=== PATIENT | female | born 1945 | race Caucasian/White ===

== ENCOUNTER 2016-07-27 09:11 | Outpatient (CLI) | payer MEDICARE | END 2016-07-27 09:12 | disposition home or self-care (01) | DX: I10 Essential (primary) hypertension (principal); E78.5 Hyperlipidemia, unspecified; E55.9 Vitamin D deficiency, unspecified ==

== ENCOUNTER 2017-07-11 14:40 | Outpatient (CLI) | payer MEDICARE ==
--- NOTE | 2017-07-12 12:46 | XRAY Report ---
COMPLETE LUMBAR SPINE: 07/11/2017 CLINICAL INDICATION: Back pain, radiculopathy. COMPARISON: 04/22/2009. FINDINGS: AP, lateral, oblique, cone down views of the lumbar spine demonstrate moderate degenerative disk and facet disease. There is degenerative retrolisthesis of L1 on L2 by approximately 5 mm, and degenerative anterolisthesis of L4 on L5 by approximately 1 cm. There is no evidence of compression fracture. No pars defect is identified. IMPRESSION: PROGRESSION OF DEGENERATIVE DISK AND FACET DISEASE, WITH DEGENERATIVE RETROLISTHESIS OF L1 ON L2 AND DEGENERATIVE ANTEROLISTHESIS OF L4 ON L5. NO EVIDENCE OF FRACTURE. TD: 07/12/2017 12:45
== END 2017-07-11 14:41 | disposition home or self-care (01) ==
LOC: DI.S 14:40
PROVIDERS: ATTEND Physician Assistant Medical
DX: M51.36 Other intervertebral disc degeneration, lumbar region (principal); M47.896 Other spondylosis, lumbar region; M43.16 Spondylolisthesis, lumbar region
CPT/HCPCS: 72110

== ENCOUNTER 2017-12-11 13:14 | Outpatient (CLI) | payer MEDICARE ==
[~2017-12-11 13:14] MED LIST: ALBUTEROL NEB 2.5 MG/3 ML INH ONE
== END 2017-12-11 13:15 | disposition home or self-care (01) ==
LOC: RT 13:14
PROVIDERS: ATTEND Physician Assistant Medical
DX: R06.09 Other forms of dyspnea (principal); R07.9 Chest pain, unspecified
CPT/HCPCS: 94010

== ENCOUNTER 2018-01-04 09:55 | Outpatient (CLI) | payer MEDICARE ==
--- NOTE | 2018-01-05 01:22 | CARDIAC PROCEDURE NOTE ---
DATE OF SERVICE: 01/04/2018 Physician: Flavia Malik MD INDICATION: Shortness of breath TYPE OF TEST: Stress Echo. CARDIAC RISK FACTORS: Hypertension and age of 72. RESTING EKG: Normal sinus rhythm, left atrial and right atrial enlargement, otherwise within normal limits. The patient underwent resting Echo images which are reported separately. Resting heart rate 69, peak heart rate 132 (90% predicted maximum predicted heart rate for age). Resting blood pressure 126/76, peak blood pressure 180/70. The patient exercised for 6 minutes, 43 seconds on a 3-minute stage Parker protocol. Achieved a peak heart rate of 132 (90% PMHR), 8.15 METS. Normal heart rate and blood pressure response to exercise. The patient developed moderate shortness of breath, no chest pain. The patient had normalization of symptoms, heart rate, and vital signs in recovery. EKG AT [facility]: horizontal ST segment depressions of 2.5 mm in leads II and III, 2 mm depressions in lead aVF. This was seen at peak heart rate. EKG changes resolved after 2 minutes. Echo images done at peak heart rate, are reported separately. IMPRESSION 1. Adequate exercise with heart rate response to 90% PMHR and she achieved greater than 7 METS. 2. Fair exercise tolerance. 3. Abnormal EKG at peak exercise, showing inferior wall ischemia by EKG criteria. 4. Echo images reported separately. CC: ORDERING PROVIDER: Martina Cruz PA-C. TD: 01/04/2018 17:06 SAMANTHA
== END 2018-01-04 09:56 | disposition home or self-care (01) ==
LOC: DI 09:55
PROVIDERS: ATTEND Physician Assistant Medical
DX: I25.9 Chronic ischemic heart disease, unspecified (principal); I51.7 Cardiomegaly; R06.09 Other forms of dyspnea
CPT/HCPCS: 93351

== ENCOUNTER 2018-07-14 10:24 | Outpatient (CLI) | payer MEDICARE ==
--- NOTE | 2018-07-15 00:53 | XRAY Report ---
Reason: KNEE JOINT PAIN, LEFT Procedure Date: 07/14/2018 Accession Number: [id number] / [id number] Procedure: XR - Knee 3 View LT CPT Code: FULL RESULT: EXAM: LEFT KNEE RADIOGRAPHY EXAM DATE: 07/14/2018 10:46 AM. CLINICAL HISTORY: KNEE JOINT PAIN, LEFT. Pain gradually increasing over time. COMPARISON: None. TECHNIQUE: 3 views. FINDINGS: No acute fracture or dislocation. No bone lesion is seen. No subluxation or knee joint effusion. Small suprapatellar enthesopathy. Heterogeneous chronic appearing calcification measuring 1.9 x 1.4 cm seen at the medial posterior aspect of the distal femur. IMPRESSION: Heterogeneous chronic appearing calcification measuring 1.9 x 1.4 cm seen at the medial posterior aspect of the distal femur, uncertain etiology. Loose body in the knee joint not excluded. [facility]
== END 2018-07-14 10:25 | disposition home or self-care (01) ==
LOC: DI 10:24
PROVIDERS: ATTEND Physician Assistant Medical
DX: M25.862 Other specified joint disorders, left knee (principal); M23.42 Loose body in knee, left knee

== ENCOUNTER 2018-07-20 08:16 | Outpatient (CLI) | payer MEDICARE ==
--- NOTE | 2018-07-20 18:32 | Ultrasound Report ---
Reason: CAROTID STENOSIS Procedure Date: 07/20/2018 Accession Number: [id number] / [id number] Procedure: US - Carotid Doppler Complete CPT Code: FULL RESULT: EXAM: BILATERAL CAROTID AND VERTEBRAL ARTERY DUPLEX DOPPLER ULTRASOUND: EXAM DATE: 07/20/2018 09:00 AM CLINICAL HISTORY: Carotid stenosis. COMPARISON: None. TECHNIQUE: Grayscale imaging, color Doppler, and duplex spectral Doppler were used to evaluate the carotid and vertebral arteries bilaterally. Static images were obtained. FINDINGS: Mild bilateral intimal thickening is seen. A small amount of plaque is seen at the left bifurcation. No significant plaque is identified in the right or left common or internal carotid arteries. Normal antegrade flow is present in bilateral vertebral arteries. VELOCITIES (cm/sec): VELOCITIES: Right: CCA Mid: PSV 62.4 cm/sec. CCA Dist: PSV 68.9 cm/sec. ICA Prox: PSV 59.3 cm/sec, EDV 17 cm/sec. ICA Mid: PSV 106 cm/sec, EDV 48 cm/sec. ICA Dist: PSV 95 cm/sec, EDV 32 cm/sec. ECA: PSV 57 cm/sec. Vertebral Artery: PSV 37 cm/sec. RVA flow direction: xAntegrade. ICA/CCA Ratio: 1.5. Left: CCA Mid: PSV 74.3 cm/sec. CCA Dist: PSV 66.6 cm/sec. ICA Prox: PSV 45.5 cm/sec, EDV 24 cm/sec. ICA Mid: PSV 91 cm/sec, EDV 30 cm/sec. ICA Dist: PSV 108.5 cm/sec, EDV 36 cm/sec. ECA: PSV 37 cm/sec. Vertebral Artery: PSV 43 cm/sec. LVA flow direction: xAntegrade. ICA/CCA Ratio: 1.6. ICA diameter stenosis: Right: <50% by velocity and <70% by NASCET criteria. Left: <50% by velocity and <70% by NASCET criteria. IMPRESSION: 1. No significant bilateral carotid artery plaquing. 2. In the right carotid artery there are no elevated carotid artery velocities to suggest hemodynamically significant stenosis. 3. In the left carotid artery there are no elevated carotid artery velocities to suggest hemodynamically significant stenosis. 4. Normal antegrade flow is present in bilateral vertebral arteries. General Recommendations: Stenosis =50% ICA - Follow-up ultrasound 6-12 months Stenosis <50% ICA - High Risk Patient with plaque - Follow-up ultrasound 1-2 years Normal Study but High Risk Patient - Follow-up ultrasound 3-5 years Management recommendations and diagnostic criteria are based on current IAC endorsed standards in Carotid Artery Stenosis: Grayscale and Doppler Ultrasound Diagnosis. Validated velocity measurements with angiographic measurements and velocity criteria are extrapolated from diameter data as defined by the Society of Radiologists in Ultrasound Consensus Conference Radiology 2003; 229;340-346. [facility]
== END 2018-07-20 08:17 | disposition home or self-care (01) ==
LOC: DI 08:16
PROVIDERS: ATTEND Physician Assistant Medical
DX: I65.29 Occlusion and stenosis of unspecified carotid artery (principal)
CPT/HCPCS: 93880

== ENCOUNTER 2018-07-25 09:38 | Outpatient (CLI) | payer MEDICARE ==
[2018-07-25 17:57] LABS: BASOPHILS # (AUTO) 0.1 10^3/uL (0.0-0.1); BASOPHILS % (AUTO) 0.9 %; EOSINOPHILS # (AUTO) 0.2 10^3/uL (0.0-0.7); EOSINOPHILS % (AUTO) 2.4 %; LYMPHOCYTES # (AUTO) 2.2 10^3/uL (1.5-3.5); LYMPHOCYTES % (AUTO) 27.5 %; MEAN CORPUSCULAR HEMOGLOBIN 30.8 pg (27.0-31.0); MEAN CORPUSCULAR HGB CONC 33.2 g/dL (32.0-36.0); MEAN CORPUSCULAR VOLUME 92.6 fL (81.0-99.0); MEAN PLATELET VOLUME 10.9 fL (7.9-10.8); MONOCYTES # (AUTO) 0.5 10^3/uL (0.0-1.0); MONOCYTES % (AUTO) 6.7 %; NEUTROPHILS # (AUTO) 4.9 10^3/uL (1.5-6.6); NEUTROPHILS % (AUTO) 62.5 %; PLT - PLATELET COUNT 203 10^3/uL (130-450); RED BLOOD COUNT 4.23 10^6/uL (4.20-5.40); RED CELL DISTRIBUTION WIDTH 12.9 % (12.0-15.0); WHITE BLOOD COUNT 7.8 x10^3/uL (4.8-10.8)
[2018-07-25 18:02] LABS: ALBUMIN 4.1 g/dL (3.2-5.5); ALBUMIN/GLOBULIN RATIO 1.5 (1.0-2.2); ALKALINE PHOSPHATASE 61 IU/L (42-121); ALT ALANINE AMINOTRANSFERASE 22 IU/L (10-60); AST ASPARTATE AMINOTRANSFERASE 25 IU/L (10-42); BILIRUBIN,TOTAL 0.9 mg/dL (0.2-1.0); BUN - BLOOD UREA NITROGEN 19 mg/dL (6-20); CALCIUM 9.2 mg/dL (8.5-10.3); CARBON DIOXIDE - CO2 31 mmol/L (21-32); CHLORIDE 101 mmol/L (101-111); CHOL/HDL RATIO 2.7 (<4.4); CHOLESTEROL 250 mg/dL; CREATININE 0.6 mg/dL (0.4-1.0); GFR - MDRD 97 (>89); GLUCOSE 86 mg/dL (70-100); HDL CHOLESTEROL 92 mg/dL; LDL CHOLESTEROL,CALCULATED 144 mg/dL; LDL/HDL RATIO 1.6 (<4.4); SODIUM 140 mmol/L (135-145); TOTAL PROTEIN 6.9 g/dL (6.7-8.2); VLDL CHOLESTEROL 14 mg/dL
== END 2018-07-25 09:39 | disposition home or self-care (01) ==
LOC: LAB.F 09:38
PROVIDERS: ATTEND Physician Assistant Medical
DX: I10 Essential (primary) hypertension (principal); E78.5 Hyperlipidemia, unspecified
CPT/HCPCS: 36415; 80053; 80061; 83721; 85025

== ENCOUNTER 2018-08-09 08:12 | Outpatient (CLI) | payer MEDICARE ==
--- NOTE | 2018-08-09 17:13 | MRI Report ---
Reason: KNEE JOINT PAIN,LEFT Procedure Date: 08/09/2018 Accession Number: [id number] / [id number] Procedure: MRI - Knee LT W/O CPT Code: FULL RESULT: EXAM: LEFT KNEE MRI WITHOUT CONTRAST EXAM DATE: 08/09/2018 09:06 AM. CLINICAL HISTORY: Medial left knee pain for several months. COMPARISON: KNEE 3 VIEW LT 07/14/2018 10:46 AM. TECHNIQUE: Multiplanar, multisequence T1-weighted and fluid-sensitive sequences of the knee without contrast. Other: None. FINDINGS: Bones: There are multiple low T1, low T2 signal foci with surrounding high T2 soft tissue along the posterior medial aspect of the medial femoral condyle. The region of interest measures approximately 12 x 12 x 24 mm. There is minimal reactive edema in the underlying surface of the medial femoral condyle. There is mild surrounding soft tissue edema the findings are nonspecific, however the lesion of interest does not lie at the insertion point of the medial collateral ligament or a tendon. The differential diagnosis includes posttraumatic ossification, however neoplastic pathology such as parosteal or periosteal sarcoma should be considered, as there is no history of trauma. Articular Cartilage: Mild thinning of the hyaline cartilage of the medial compartment. The lateral and patellofemoral compartment appear unremarkable. Medial Meniscus: There is an oblique undersurface tear of the posterior horn of the medial meniscus. Lateral Meniscus: The lateral meniscus is intact. Cruciate Ligaments: The anterior and posterior cruciate ligaments are intact. Collateral Ligaments: The medial collateral and lateral collateral ligamentous structures are intact. Tendons: The quadriceps, patellar, semimembranosus, and popliteus tendons are unremarkable. Musculature: No edema or fatty atrophy. Other: Small joint effusion. No popliteal cyst. No loose bodies. The medial and lateral retinacula are intact. The subcutaneous tissues and fat pads are unremarkable. IMPRESSION: 1. The lesion in the region of interest demonstrates nonspecific features that raise the possibility of prior trauma or low-grade neoplastic pathology. The possibility of calcification or ossification forming in a leaking Faulkner's cyst is considered less likely, as the patient has minimal cartilage erosion. Surgical consultation is recommended. 2. Minimal cartilage erosion in the medial compartment. 3. Oblique undersurface tear of the posterior horn of the medial meniscus. [facility] MUSCULOSKELETAL RADIOLOGY SECTION
== END 2018-08-09 08:13 | disposition home or self-care (01) ==
LOC: DI 08:12
PROVIDERS: ATTEND Physician Assistant Medical
DX: S83.242A Other tear of medial meniscus, current injury, left knee, initial encounter (principal)

== ENCOUNTER 2018-09-06 08:56 | Outpatient (CLI) | payer MEDICARE ==
[2018-09-06 11:25] LABS: MAGNESIUM 2.5 mg/dL (1.7-2.8)
== END 2018-09-06 08:57 | disposition home or self-care (01) ==
LOC: LAB.F 08:56
PROVIDERS: ATTEND Physician Assistant Medical
DX: Z51.81 Encounter for therapeutic drug level monitoring (principal)
CPT/HCPCS: 36415; 83735; 84132

== ENCOUNTER 2018-10-04 10:02 | Outpatient (CLI) | payer MEDICARE ==
[2018-10-04 17:36] LABS: ALBUMIN 4.1 g/dL (3.2-5.5); ALBUMIN/GLOBULIN RATIO 1.5 (1.0-2.2); BILIRUBIN,TOTAL 0.8 mg/dL (0.2-1.0); CALCIUM 8.9 mg/dL (8.5-10.3); CREATININE 0.7 mg/dL (0.4-1.0); TOTAL PROTEIN 6.9 g/dL (6.7-8.2)
== END 2018-10-04 10:03 | disposition home or self-care (01) ==
LOC: LAB.F 10:02
PROVIDERS: ATTEND Physician Assistant Medical
DX: I10 Essential (primary) hypertension (principal)
CPT/HCPCS: 36415; 80053

== ENCOUNTER 2018-10-22 12:43 | Outpatient (CLI) | payer MEDICARE ==
--- NOTE | 2018-10-22 15:43 | Mammography Report ---
Reason: SCREENING MAMMO Procedure Date: 10/22/2018 Accession Number: [id number] / [id number] Procedure: DREW - Screening Mammo w/Salas CPT Code: FULL RESULT: EXAM: Screening Mammo w/Salas DATE: 10/22/2018 2:07 PM CLINICAL HISTORY: Screening TECHNIQUE: (B) - Bilateral CC and MLO views were obtained. COMPARISON: 11/25/2015, 04/21/2015, ultrasound-guided right breast biopsy 04/21/2015 PARENCHYMAL PATTERN: (A) - The breasts demonstrate scattered fibroglandular densities bilaterally. FINDINGS: Compared to 2014, there has been interval decrease in size of a biopsy-proven lesion in the superficial upper inner quadrant right breast containing a postbiopsy marker clip. There are no suspicious masses, calcifications, or areas of distortion. IMPRESSION: Negative examination. BI-RADS category 1. RECOMMENDATION: (ANNUAL) - Recommend routine annual screening mammography. BI-RADS CATEGORY: (1) - Negative. STANDARD QUALIFYING STATEMENTS: 1. This examination was not reviewed with the aid of Computer-Aided Detection (CAD). 2. A negative or benign imaging report should not preclude biopsy if clinically suspicious findings are present. 3. Dense breasts may obscure an underlying neoplasm. 4. This examination was reviewed with the aid of 3D breast imaging (tomosynthesis).
== END 2018-10-22 12:44 | disposition home or self-care (01) ==
LOC: DI 12:43
PROVIDERS: ATTEND Physician Assistant Medical
DX: Z12.31 Encounter for screening mammogram for malignant neoplasm of breast (principal)
CPT/HCPCS: 77063; 77067

== ENCOUNTER 2018-10-22 12:44 | Outpatient (CLI) | payer MEDICARE ==
--- NOTE | 2018-10-24 09:39 | DEXA Report ---
Reason: POSTMENOPAUSAL STATUS Procedure Date: 10/22/2018 Accession Number: [id number] / [id number] Procedure: DEX - Dexa Spine and/or Hip CPT Code: FULL RESULT: EXAM: Dexa Spine and/or Hip DATE: 10/22/2018 2:20 PM CLINICAL HISTORY: POSTMENOPAUSAL STATUS TECHNIQUE: Dual energy x-ray absorptiometry (DXA) was performed on a [employer] System. Regions measured are the AP Spine, femoral neck, and if needed forearm. COMPARISON: None. In accordance with the International Society for Clinical Densitometry (ISCD) guidelines, data from previous exams may be reanalyzed using current recommendations and techniques. This is done to allow a more accurate basis for comparison with the current study. FINDINGS: The data for the lumbar spine is as follows: BMD (g/cm/cm) T-SCORE Z-SCORE REGION L1 1.177 0.4 2.5 L2 1.180 -0.2 2.0 L3 1.003 -1.6 0.5 L4 1.154 -0.4 1.7 TOTAL 1.126 -0.4 1.7 NOTE: All evaluable vertebrae are used for classification The data for the hip is as follows: BMD (g/cm/cm) T-SCORE Z-SCORE REGION Neck 0.671 -2.6 -0.5 TOTAL 0.818 -1.5 0.5 NOTE: The femoral neck or total proximal femur, whichever is lowest, is used for classification. IMPRESSION: THE WHO CLASSIFICATION BASED ON THE INTERNATIONAL REFERENCE STANDARD IS OSTEOPOROSIS. THE FRACTURE RISK IS HIGH. RECOMMENDATION: Patients with diagnosis of osteoporosis or osteopenia should have regular bone mineral density assessment. For those eligible for Medicare, routine testing is allowed once every 2 years. Testing frequency can be increased for patients who have rapidly progressing disease or for those who are receiving medical therapy to restore bone mass. COMMENT: World Health Organization (WHO) definitions for osteoporosis and osteopenia: NORMAL BMD: T-score at -1.0 or higher, fracture risk is low OSTEOPENIA BMD: T-score between -1.0 and -2.5, fracture risk is increased. OSTEOPOROSIS BMD: T-score at -2.5 or lower, fracture risk is high. National Osteoporosis Foundation recommends: 1. Obtain adequate dietary calcium (at least 1200 mg per day) and vitamin D (400-800 international units per day). 2. Participate, as appropriate, in regular weightbearing and muscle-strengthening exercise. 3. Avoid tobacco use and reduce alcohol and caffeine intake. 4. For more detailed information see the website at www.NOF.org.
== END 2018-10-22 12:45 | disposition home or self-care (01) ==
LOC: DI 12:44
PROVIDERS: ATTEND Physician Assistant Medical
DX: M81.0 Age-related osteoporosis without current pathological fracture (principal)
CPT/HCPCS: 77080

== ENCOUNTER 2019-06-03 13:47 | Outpatient (CLI) | payer MEDICARE ==
--- NOTE | 2019-06-03 14:37 | CT Report ---
Reason: HEMATOMA ON HEAD, HEADACHE, FALL Procedure Date: 06/03/2019 Accession Number: [id number] / [id number] Procedure: CT - HEAD WO CPT Code: Addended Final Report FULL RESULT: EXAM: CT HEAD EXAM DATE: 06/03/2019 02:00 PM. CLINICAL HISTORY: HEMATOMA ON HEAD, HEADACHE, FALL. COMPARISON: None. TECHNIQUE: Multiaxial CT images were obtained from the foramen magnum to the vertex. Reformats: Sagittal and coronal. IV contrast: None. In accordance with CT protocol optimization, one or more of the following dose reduction techniques were utilized for this exam: automated exposure control, adjustment of mA and/or KV based on patient size, or use of iterative reconstructive technique. FINDINGS: Parenchyma: No intraparenchymal hemorrhage. No evidence of mass, midline shift, or CT findings of infarction. Rodriguez-white differentiation is distinct. Extraaxial Spaces: Normal for age. No subdural or epidural collections identified. Ventricles: Normal in size and position. Sinuses and Orbits: Imaged paranasal sinuses, orbits, and mastoids show no significant abnormality. Bones: No evidence of fracture or calvarial defect. Other: A subcutaneous scalp hematoma in left posterior parietal location measuring approximately 5.4 x 1.4 cm with no underlying acute dispaced calvarial fracture. IMPRESSION: A subcutaneous scalp hematoma in left posterior parietal location measuring approximately 5.4 x 1.4 cm with no underlying acute displaced calvarial fracture. No acute traumatic intracranial abnormality. [facility] The call report notification system was initiated by Dr. Guadalupe Page at 02:37 PM on 06/03/2019. ADDENDUM: 06/03/19 14:42 The above call report findings were discussed with GUILLE Cee by Dr. Guadalupe Page at 02:42 PM on 06/03/2019.
== END 2019-06-03 13:48 | disposition home or self-care (01) ==
LOC: DI 13:47
PROVIDERS: ATTEND Registered Nurse
DX: S00.03XA Contusion of scalp, initial encounter (principal); R51 Headache
CPT/HCPCS: 70450

== ENCOUNTER 2020-08-01 04:11 | Outpatient (CLI) | payer MEDICARE | END 2020-08-01 04:12 | disposition critical access hospital (66) | LOC: EMS 04:11 | PROVIDERS: ATTEND Emergency Medicine | DX: R07.9 Chest pain, unspecified (principal); R11.0 Nausea | CPT/HCPCS: A0425; A0427 ==

== ENCOUNTER 2020-08-01 04:43 | Emergency (ER) | payer MEDICARE ==
[2020-08-01] MEDS ORDERED: MORPHINE 2 MG/ML CARPUJECT IVP STA (05:03)
[2020-08-01] MEDS ORDERED: MAG HYDROX/AL HYDROX/SIMETH 30 ML UDC PO STA (05:04)
[2020-08-01] MEDS ORDERED: FAMOTIDINE 20 MG/2 ML VIAL IVP STA (05:04)
[2020-08-01 05:41] LABS: BASOPHILS % (AUTO) 0.2 %; EOSINOPHILS # (AUTO) 0.1 10^3/uL (0.0-0.7); EOSINOPHILS % (AUTO) 0.5 %; HCT - HEMATOCRIT 35.4 % (37.0-47.0); LYMPHOCYTES # (AUTO) 1.5 10^3/uL (1.5-3.5); LYMPHOCYTES % (AUTO) 14.7 %; MEAN CORPUSCULAR HEMOGLOBIN 31.3 pg (27.0-31.0); MEAN CORPUSCULAR HGB CONC 33.9 g/dL (32.0-36.0); MEAN CORPUSCULAR VOLUME 92.2 fL (81.0-99.0); MEAN PLATELET VOLUME 11.9 fL (7.9-10.8); MONOCYTES # (AUTO) 0.6 10^3/uL (0.0-1.0); MONOCYTES % (AUTO) 5.5 %; NEUTROPHILS # (AUTO) 7.9 10^3/uL (1.5-6.6); NEUTROPHILS % (AUTO) 78.5 %; PLT - PLATELET COUNT 191 10^3/uL (130-450); RED BLOOD COUNT 3.84 10^6/uL (4.20-5.40); RED CELL DISTRIBUTION WIDTH 12.3 % (12.0-15.0); WHITE BLOOD COUNT 10.1 x10^3/uL (4.8-10.8)
[2020-08-01 05:50] LABS: ALBUMIN 3.7 g/dL (3.2-5.5); ALBUMIN/GLOBULIN RATIO 1.4 (1.0-2.2); BILIRUBIN,TOTAL 0.6 mg/dL (0.2-1.0); CALCIUM 9.1 mg/dL (8.5-10.3); CREATININE 0.6 mg/dL (0.4-1.0); MAGNESIUM 1.9 mg/dL (1.7-2.8); POTASSIUM 3.2 mmol/L (3.5-5.0); TOTAL PROTEIN 6.3 g/dL (6.7-8.2)
[2020-08-01] MEDS ORDERED: KETOROLAC 30 MG/ML VIAL IVP STA (06:28)
--- NOTE | 2020-08-01 06:35 | ED Physician Documentation ---
PD HPI CHEST PAIN - Stated complaint Stated Complaint: CP - Chief complaint Chief Complaint: Cardiac - History obtained from History obtained from: Patient - History of Present Illness Timing - onset: How many hours ago (5) Timing - onset during: Sleep Timing - duration: Hours (5) Timing - details: Abrupt onset (woke from sleep with nausea and some lower substernal chest pressure/tightness.), Still present Quality: Pressure, Tightness. No: Aching, Sharp Location: Substernal, Epigastric Worsened by: No: Inspiration, Movement Associated symptoms: Nausea, Feeling faint / dizzy. No: Shortness of air, General Weakness, Palpitations, Cough Similar symptoms before: Has not had sx before Recently seen: Not recently seen Review of Systems Constitutional: denies: Fever, Chills Nose: denies: Rhinorrhea / runny nose, Congestion Throat: denies: Sore throat Cardiac: reports: Chest pain / pressure. denies: Palpitations, Pedal edema, Calf pain Respiratory: denies: Dyspnea, Cough, Wheezing GI: reports: Nausea. denies: Abdominal Pain, Vomiting, Diarrhea Skin: denies: Rash, Lesions PD PAST MEDICAL HISTORY - Past Medical History Past Medical History: Yes Cardiovascular: Hypertension, High cholesterol Respiratory: None Neuro: None Endocrine/Autoimmune: None GI: GI bleed - Past Surgical History Past Surgical History: Yes Derm: Skin cancer surgery - Present Medications Home Medications: Ambulatory Orders Medication Instructions Recorded Confirmed Clonazepam 0.25 mg PO PRN PRN 08/01/20 08/01/20 Hydrochlorothiazide 25 mg PO DAILY 08/01/20 08/01/20 Losartan Potassium 25 mg PO DAILY 08/01/20 08/01/20 - Allergies Allergies/Adverse Reactions: Allergies Allergy/AdvReac Type Severity Reaction Status Date / Time No Known Drug Allergies Allergy Verified 08/01/20 05:03 - Social History Does the pt smoke?: No Smoking Status: Never smoker Does the pt drink ETOH?: Yes Does the pt have substance abuse?: No - Immunizations Immunizations are current?: Yes PD ED PE NORMAL - Vitals Vital signs reviewed: Yes - General General: Alert and oriented X 3, No acute distress, Well developed/nourished - HEENT HEENT: Pharynx benign - Neck Neck: Supple, no meningeal sign, No adenopathy - Cardiac Cardiac: RRR, No murmur - Respiratory Respiratory: Clear bilaterally, Other (some chestwall tenderness parasternal area. No redness nor rash. ) - Abdomen Abdomen: Normal bowel sounds, Soft, Non tender, Non distended - Derm Derm: Normal color, Warm and dry - Extremities Extremities: Normal ROM s pain, No edema, No calf tenderness / cord - Neuro Neuro: Alert and oriented X 3, No motor deficit, Normal speech Results - Vitals Vitals: Vital Signs - 24 hr 08/01/20 08/01/20 08/01/20 04:52 04:59 06:52 Temperature 37.1 C 37.1 C 36.6 C Heart Rate 63 63 65 Respiratory 14 14 17 Rate Blood Pressure 141/74 H 141/74 H 152/75 H O2 Saturation 100 100 95 08/01/20 07:15 Temperature 36.6 C Heart Rate 63 Respiratory 16 Rate Blood Pressure 132/72 H O2 Saturation 100 Oxygen O2 Source Room air - EKG (time done) 04:51 Rate: Rate (enter#) (65) Rhythm: NSR [place]: Normal Intervals: Normal CT QRS: Normal Ischemia: Normal ST segments. No: ST elevation c/w ischemia, ST depression, T wave inversion Compare to prior EKG: Old EKG unavailable Computer interpretation: Agree with computer - Labs Labs: Laboratory Tests 08/01/20 08/01/20 08/01/20 05:33 05:33 05:33 WBC 10.1 RBC 3.84 L Hgb 12.0 Hct 35.4 L MCV 92.2 MCH 31.3 H MCHC 33.9 RDW 12.3 Plt Count 191 MPV 11.9 H Neut # (Auto) 7.9 H Lymph # (Auto) 1.5 [place] # (Auto) 0.6 Eos # (Auto) 0.1 Baso # (Auto) 0.0 Absolute Nucleated RBC 0.00 Nucleated RBC % 0.0 Sodium 135 Potassium 3.2 L Chloride 94 L Carbon Dioxide 24 Anion Gap 17.0 H BUN 19 Creatinine 0.6 Estimated GFR (MDRD) 97 Glucose 123 H Calcium 9.1 Magnesium 1.9 Total Bilirubin 0.6 AST 27 ALT 20 Alkaline Phosphatase 57 Troponin I High Sens < 2.3 L Total Protein 6.3 L Albumin 3.7 Globulin 2.6 Albumin/Globulin Ratio 1.4 Lipase 20 L - Rads (name of study) chest xray Radiology: Prelim report reviewed (normal), See rad report PD MEDICAL DECISION MAKING - ED course Complexity details: reviewed results, re-evaluated patient (no signs of significant cause. Does have some chestwall tenderness. Consider costchondritis. No noted injury. ), considered differential, d/w patient Departure - Departure Disposition: 01 Home, Self Care Clinical Impression: Nausea Chest pain Qualifiers: Chest pain type: precordial pain Qualified Code(s): R07.2 - Precordial pain Condition: Stable Record reviewed to determine appropriate education?: Yes Instructions: ED Chest Pain Costochondritis Follow-Up: SHEA BROOKS ARNP [Primary Care Provider] - Comments: Your chest x-ray, EKG, blood tests are normal which means no signs of more significant cause of your symptoms such as heart attack, pneumonia, heart failure, collapsed lung. Components of your symptoms sound like chest wall pain so there may be some inflammation along the muscles or cartilage. I would suggest some Aleve/naproxen 2 tablets twice daily for the next several days to week taken with food. To that add Tylenol if needed for discomfort. Recheck if not improved well over the next several days and resolved by 3 to 5 days. Return if worsening symptoms. Discharge Date/Time: 08/01/20 07:48
[2020-08-01 07:17] VITALS: BP 132/72
--- NOTE | 2020-08-01 09:03 | XRAY Report ---
PROCEDURE: Chest 1 View X-Ray INDICATIONS: Chest Pain TECHNIQUE: One view of the chest was acquired. COMPARISON: CXR 09/20/2012. FINDINGS: Surgical changes and devices: None. Lungs and pleura: No pleural effusions or pneumothorax. Minimal airspace opacity in the right lower lobe which was likely present in 2012. Mediastinum: Mediastinal contours appear normal. Heart size is normal. Bones and chest wall: No suspicious bony lesions. Overlying soft tissues appear unremarkable. IMPRESSION: No acute cardiopulmonary abnormality. Minimal airspace opacity in the right lower lobe. Suspect scarring or atelectasis. Reviewed by: Marvin Song MD on 08/01/2020 8:02 AM [facility] Approved by: Marvin Song MD on 08/01/2020 8:02 AM BRE Station ID: [id number]
== END 2020-08-01 07:48 | disposition home or self-care (01) ==
LOC: ED 04:43
DX: R07.2 Precordial pain (principal); R11.0 Nausea; I10 Essential (primary) hypertension
CPT/HCPCS: 36415; 71045; 80053; 83690; 83735; 84484; 85025; 93005; 96374; 96375; 99284; A9270

== ENCOUNTER 2021-02-23 15:26 | Outpatient (CLI) | payer MEDICARE ==
--- NOTE | 2021-02-23 17:41 | Ultrasound Report ---
PROCEDURE: Carotid Doppler Complete INDICATIONS: SYNCOPE TECHNIQUE: Color and pulse Doppler interrogation was performed of both carotid systems, with image documentation and velocity measurements. COMPARISON: 07/20/2018, 08/25/2014 FINDINGS: The common carotid arteries are patent and demonstrate normal flow velocities. By velocity criteria, no hemodynamically significant stenosis can be seen within the internal carotid arteries. Normal appearing waveforms are seen. Atherosclerotic change can be seen. The left internal carotid artery is noted to be tortuous. Antegrade flow seen within both vertebral arteries. IMPRESSION: No hemodynamically significant stenosis is seen. No significant change from the prior. Atherosclerotic changes are noted. The estimate of stenosis included in the report of the imaging study was calculated using the NASCET method Reviewed by: Janak Hale MD on 02/23/2021 4:40 PM BRE Approved by: Janak Hale MD on 02/23/2021 4:40 PM BRE Station ID: [id number]
== END 2021-02-23 15:27 | disposition home or self-care (01) ==
LOC: DI 15:26
PROVIDERS: ATTEND Nurse Practitioner Family
DX: R55 Syncope and collapse (principal); I65.23 Occlusion and stenosis of bilateral carotid arteries
CPT/HCPCS: 93880

== ENCOUNTER 2021-02-28 11:14 | Outpatient (CLI) | payer MEDICARE ==
--- NOTE | 2021-02-28 12:42 | SLEEP CARE CONSULTATION ---
Information from patient questionnaire entered by Emily Lora. I have reviewed and concur with the information entered by Emily Lora. This document represents the service I personally performed and the decisions made by me, Ana Steinberg MD, [facility]. History of Present Illness Service Date and Time: 02/28/2021 1114 Reason for Visit: New patient Chief Complaint: reports: Insomnia, Observed pauses in breathing (only once), Frequent awakenings at night Date of Onset: several years Usual bedtime: [id number] Time it takes to fall asleep: 30-45 minutes Number of times waking at night: 3-4 Reasons for waking at night: reports: Other (unknown reason) Recalls having dreams: Yes (sometimes) Usually gets out of bed at: 0600 ([id number]) Feels refreshed in the morning: No Morning headache: No Sleepy or fatigued during the day: Yes (somewhat) Ever fallen asleep while driving: No Takes day naps: Yes (sometimes) Dreams during day naps: No Prior sleep studies: No Additional HPI information: I have the pleasure of seeing Ms. Prado today regarding the possibility of her having obstructive sleep apnea. As you know, she is a 75 year old lady who complains of insomnia for almost 20 years. [place]. The patient tells me that she normally goes to bed around 9:30 - 10 pm, and it takes her approximately 30 - 45 minutes to fall asleep. She occasionally takes clonazepam, zolpidem, CALM, and melatonin during the night. She has not been told that she snores loudly or irregularly at night. She has never been observed to stop breathing in her sleep. However, she sleeps alone. She can recall waking up on the average of 3 - 4 times during the night. Most of the time she wakes up because of no apparent reason. She has awakened occasionally because of her own snoring, choking, and having to gasp for air. There is a lot of tossing and turning in her sleep. No somniloquy (sleep talking) or somnambulism (sleep walking). Generally, she can recall having dreams. In the morning she usually gets up out of the bed around 4:30 - 7 a.m. not feeling ref reshed nor rested. She usually does not have a morning headache. During the day she does not feel sleepy and fatigued. Her score on Hadley Sleepiness Scale is 2 out of 24. She never has fallen asleep while driving nor has had any accident due to sleepiness. She usually takes a nap during the day 3 4 times a week. Upon falling asleep during the day she denies having vivid dreams. She has never had sleep paralysis, experienced cataplexy or symptoms of restless leg syndrome. She reports having impaired concentration during the day. - Parasomnia Symptoms Ever been unable to move upon waking from sleep: No Walks in sleep: No Talks in sleep: No Ever acted out dreams in sleep: No Ever felt weak in the knees when startled or emotional: No Bothered by creepy, crawly, restless sensations in legs: No Problems with memory or concentration: Yes (some) Subjective Initial Hadley Sleepiness Scale score: 5 (in 2020) Past Medical History Past Medical History: reports: Hypertension, GERD Social History The patient's occupation is a RETIRED. Patient is and lives in [place]. Have you smoked in the past 12 months: No Cigarettes per day (20/pack): 15 (10-15) Years of smokin Quit date: 1970 Smoking Pack Years: 7.0 Alcohol use: Yes Alcohol amount and frequency: 1 glass wine, 2-3 times/week Caffeine use: Yes Caffeine amount and frequency: 1 cup half caf; once a day, sometimes twice Family History Family history of sleep disordered breathing: No Allergies and Home Medications Drug allergies reviewed: Yes Home medication list reviewed: Yes Review of Systems Cardiovascular: reports: high blood pressure Respiratory: denies: shortness of breath, wheeze, sputum production, chronic cough, other Gastrointestinal: reports: nausea (occasional) Urinary: denies: incontinence, frequency, urgency, impotence, other Neurological: reports: fainting or unconsciousness Psychiatric: denies: Attention Deficit Hyperactivity, anxiety, depression, mood disorder, claustrophobia, other Ear/Nose/Throat: reports: nasal congestion, dry mouth/throat (at night), wisdom teeth removed (3 of 4) Endocrine: denies: thyroid disease, history of goiter, sluggishness, too hot or cold, excessive thirst, increased appetite, increased urination, unexplained weakness, other Musculoskeletal: reports: joint pain, back pain (bback of legs, glutes), muscle pain or cramping Physical Exam Vital signs obtained and entered by: To minimize the risk of COVID-19 exposure, detailed exam was not performed. Height: 5 ft 3 in Weight: 118 lb Body Mass Index: 20.9 BMI Classification: Healthy weight Impression and Plan IMPRESSION: 1. Insomnia, involving sleep maintenance. The patient is most concerned with lying awake during the night and not getting enough sleep. I first reassured her that she is getting enough sleep because she is not sleepy during the day. She sometimes cannot nap even if she tries. Therefore, her goal is to not sleep more, but to not lie awake in bed. Because she says that she would be happy with 7 hours a night of sleep, I advise her to spend no more than 7 hours in bed and avoid daytime naps. She chose 11 pm 6 am. She still has some zolpidem left and may take it to during the next few weeks. A sleep study will be performed to rule out sleep-disordered breathing such as sleep apnea. She does have hypertension and has woken up gasping. Plan: 1. Schedule polysomnography and return in 1 to 2 weeks after the study to discuss result and initiate therapy. 2. Maintain a regular wake up time and spend no more than 7 hours in bed at night. Avoid naps. 3. May take zolpidem 5 mg while transitioning to the new sleep-wake schedule. Follow up with Sleep Care in: 1-2 months Visit Type: In Office Time Spent with Patient (minutes): 20 Provider Statement: I spent 100% of the Face to Face Visit with the patient with greater than 50% spent counseling the patient and coordination of care.
== END 2021-02-28 11:15 | disposition home or self-care (01) ==
LOC: SC 11:14
PROVIDERS: ATTEND Internal Medicine Pulmonary Disease
DX: G47.00 Insomnia, unspecified (principal); Z87.891 Personal history of nicotine dependence
CPT/HCPCS: 99212; G0463

== ENCOUNTER 2021-06-29 19:37 | Outpatient (CLI) | payer MEDICARE | END 2021-06-29 19:38 | disposition home or self-care (01) | LOC: SC 19:37 | PROVIDERS: ATTEND Internal Medicine Pulmonary Disease | DX: G47.00 Insomnia, unspecified (principal) | CPT/HCPCS: 95810 ==

== ENCOUNTER 2021-07-18 16:12 | Outpatient (CLI) | payer MEDICARE ==
--- NOTE | 2021-07-18 22:03 | SLEEP CARE CONSULTATION ---
Information from patient questionnaire entered by Paola Montemayor MA. I have reviewed and concur with the information entered by Paola Montemayor MA. This document represents the service I personally performed and the decisions made by me, Ana Steinberg MD, [facility]. History of Present Illness Service Date and Time: 07/18/2021 1612 Initial Glasgow Sleepiness Scale score: 5 (in 2020) Additional HPI information: Ms. Prado returned for follow up of the sleep study she had on 06/29/2021. The polysomnography showed that the patient had slightly reduced sleep efficiency due to a prolonged awakening in the middle of the night. The sleep architecture was relatively normal considering the first-night effect. Respiratory monitoring showed no significant sleep disordered breathing (AHI = 3.4). There was mild hypoxia (mohsen oxygen saturation of 86%) due to the few respiratory events that occurred almost exclusively during supine REM sleep (supine AHI = 9.7; non- supine = 0.68). Snore was light in intensity. There was no significant periodic leg movement of sleep. Cardiac rhythm was normal sinus rhythm without significant arrhythmia. No abnormal behavior (parasomnia) observed during the night. The patient was informed of these findings. I explained to her that the sleep study did not show any sleep disrupting conditions. She states that she does not usually sleep on her back at home. Sleep Study - Results Type of Sleep Study: Polysomnography (F/U POLY) Prior sleep studies: No Allergies and Home Medications Drug allergies reviewed: Yes Home medication list reviewed: Yes Allergy and home medication list: Allergies No Known Drug Allergies Allergy (Verified 08/01/20 05:03) Review of Systems Review of systems same as previous: Yes Physical Exam Vital signs obtained and entered by: CARLY FORTE Height: 5 ft 3 in Impression and Plan IMPRESSION: 1. Insomnia. The patient reports improvement after the initial consultation here. Following, my advice, she has made her sleep-wake schedule more regular and spent less time in bed. She is happy to hear that she does not have sleep-disordered breathing. PLAN: 1. Continue to maintain regular sleep-wake schedule between 11 pm and 7 am. 2. Return for a follow up at the sleep clinic on as needed basis. Follow up with Sleep Care in: as needed Visit Type: Telehealth Phone Video Type: Other Patient Location: Home Location of Provider: Office Time Spent with Patient (minutes): 15 Provider Statement: I spent 100% of the Telehealth Phone Call with the patient with greater than 50% spent counseling the patient and coordination of care.
== END 2021-07-18 16:13 | disposition home or self-care (01) ==
LOC: SC 16:12
PROVIDERS: ATTEND Internal Medicine Pulmonary Disease
DX: G47.00 Insomnia, unspecified (principal)

== ENCOUNTER 2022-03-10 03:09 | Emergency (ER) | payer MEDICARE ==
[2022-03-10] MEDS ORDERED: SODIUM CHLORIDE 0.9% 500 ML IV STA (03:28)
[2022-03-10] MEDS ORDERED: METOCLOPRAMIDE 10 MG/2 ML VIAL IVP STA (03:28)
--- NOTE | 2022-03-10 03:33 | ED Physician Documentation ---
History of Present Illness - Stated complaint Stated Complaint: C+/NAUSEA/CHILLS - Chief complaint Chief Complaint: Abd Pain - Additonal information Additional information: Patient 76-year-old female presenting to the emergency department with chief complaint of nausea. Diagnosed with COVID by home test Sunday. Since that time has had cough, congestion and intractable nausea. Reports decreased p.o. intake. Denies any vomiting. Denies any chest, abdominal pain. Denies any shortness of breath. Denies any diarrhea or constipation.Has used ondansetron with no relief. Review of Systems Ten Systems: 10 systems reviewed and negative Constitutional: reports: Fever Eyes: denies: Loss of vision Ears: denies: Loss of hearing Nose: reports: Congestion. denies: Rhinorrhea / runny nose Throat: denies: Dental pain / toothache Cardiac: denies: Chest pain / pressure, Palpitations Respiratory: reports: Cough. denies: Dyspnea, Hemoptysis GI: reports: Nausea. denies: Abdominal Pain, Vomiting, Constipation, Diarrhea, Hematemesis : denies: Dysuria Skin: denies: Rash Musculoskeletal: denies: Neck pain Neurologic: denies: Generalized weakness PD PAST MEDICAL HISTORY - Past Medical History Cardiovascular: Hypertension, High cholesterol Respiratory: None Neuro: None Endocrine/Autoimmune: None GI: GI bleed - Past Surgical History Past Surgical History: Yes Derm: Skin cancer surgery - Present Medications Home Medications: Ambulatory Orders Medication Instructions Recorded Confirmed Losartan Potassium 25 mg PO DAILY 08/01/20 03/10/22 hydroCHLOROthiazide 25 mg PO DAILY 08/01/20 03/10/22 [Hydrochlorothiazide] Metoclopramide [Reglan] 10 mg PO Q6H PRN #20 tablet 03/10/22 - Allergies Allergies/Adverse Reactions: Allergies Allergy/AdvReac Type Severity Reaction Status Date / Time No Known Drug Allergies Allergy Verified 03/10/22 03:23 - Social History Does the pt smoke?: No Smoking Status: Never smoker Does the pt drink ETOH?: Yes Does the pt have substance abuse?: No - Immunizations Immunizations are current?: Yes PD ED PE NORMAL - Vitals Vital signs reviewed: Yes - General General: Alert and oriented X 3, No acute distress, Well developed/nourished, Other - HEENT HEENT: Atraumatic, PERRL, EOMI, Ears normal, Moist mucous membranes - Neck Neck: Supple, no meningeal sign - Cardiac Cardiac: RRR - Respiratory Respiratory: No respiratory distress, Clear bilaterally - Abdomen Abdomen: Normal bowel sounds, Soft, Non tender - Female Female : Deferred - Rectal Rectal: Deferred - Derm Derm: Normal color - Extremities Extremities: No deformity - Neuro Neuro: Alert and oriented X 3, area director 2-12 intact, No motor deficit, No sensory deficit, Normal speech Results - Vitals Vitals: Vital Signs - 24 hr 03/10/22 03/10/22 03/10/22 03:20 03:23 03:52 Temperature 36.2 C L Heart Rate 74 76 76 Respiratory 18 18 17 Rate Blood Pressure 188/71 H O2 Saturation 97 99 98 03/10/22 03/10/22 04:47 05:31 Temperature Heart Rate 72 68 Respiratory 16 16 Rate Blood Pressure O2 Saturation 98 99 Oxygen O2 Source Room air - EKG (time done) 0342 Rate: Rate (enter#) (76) Rhythm: NSR [place]: Normal Intervals: Normal MN. No: Prolonged QT Ischemia: Normal ST segments. No: T wave inversion Compare to prior EKG: Unchanged from prior EKG Computer interpretation: Agree with computer - Labs Labs: Laboratory Tests 03/10/22 03/10/22 03/10/22 04:05 04:05 04:05 WBC 6.7 RBC 4.34 Hgb 12.9 Hct 38.0 MCV 87.6 MCH 29.7 MCHC 33.9 RDW 11.7 L Plt Count 208 MPV 11.2 H Neut # (Auto) 4.8 Lymph # (Auto) 1.3 L Whitman # (Auto) 0.5 Eos # (Auto) 0.0 Baso # (Auto) 0.0 Absolute Nucleated RBC 0.00 Nucleated RBC % 0.0 PT 11.4 INR 1.0 VBG pH VBG pCO2 VBG pO2 VBG HCO3 VBG Total CO2 VBG O2 Saturation VBG Base Excess Sodium 131 L Potassium 2.9 L Chloride 90 L Carbon Dioxide 26 Anion Gap 15.0 H BUN 18 Creatinine 0.5 Estimated GFR (MDRD) 119 Glucose 97 Calcium 8.6 Magnesium 1.9 Total Bilirubin 1.0 AST 23 ALT 14 Alkaline Phosphatase 60 Total Protein 6.9 Albumin 3.9 Globulin 3.0 Albumin/Globulin Ratio 1.3 Lipase 25 Urine Color Urine Clarity Urine pH Ur Specific [place] Urine Protein Urine Glucose (UA) Urine Ketones Urine Occult Blood Urine Nitrite Urine Bilirubin Urine Urobilinogen Ur Leukocyte Esterase Urine RBC Urine WBC Ur Squamous Epith Cells Urine Bacteria Urine Mucus Ur Microscopic Review Urine Culture Comments 03/10/22 03/10/22 04:05 04:40 WBC RBC Hgb Hct MCV MCH MCHC RDW Plt Count MPV Neut # (Auto) Lymph # (Auto) Whitman # (Auto) Eos # (Auto) Baso # (Auto) Absolute Nucleated RBC Nucleated RBC % PT INR VBG pH 7.436 H VBG pCO2 41.0 VBG pO2 42.0 VBG HCO3 27.0 VBG Total CO2 28.2 VBG O2 Saturation 80.2 H VBG Base Excess 2.5 H Sodium Potassium Chloride Carbon Dioxide Anion Gap BUN Creatinine Estimated GFR (MDRD) Glucose Calcium Magnesium Total Bilirubin AST ALT Alkaline Phosphatase Total Protein Albumin Globulin Albumin/Globulin Ratio Lipase Urine Color YELLOW Urine Clarity CLEAR Urine pH 6.5 Ur Specific [place] 1.015 Urine Protein NEGATIVE Urine Glucose (UA) NEGATIVE Urine Ketones >=80 H Urine Occult Blood NEGATIVE Urine Nitrite NEGATIVE Urine Bilirubin NEGATIVE Urine Urobilinogen 0.2 (NORMAL) Ur Leukocyte Esterase TRACE H Urine RBC 0-5 Urine WBC 4-5 Ur Squamous Epith Cells FEW Squamous Urine Bacteria Rare Urine Mucus Few Strands Ur Microscopic Review INDICATED Urine Culture Comments INDICATED PD MEDICAL DECISION MAKING - ED course Complexity details: reviewed results, re-evaluated patient, d/w patient ED course: Patient is 76-year-old female presenting to the emergency department with chief complaint of nausea And decreased p.o. intake. Took a COVID test Sunday which was positive. Symptoms began Sunday evening. Major symptoms include a cough and congestion but she denies any fever, chest pain or shortness of breath. She has however been experiencing severe nausea which is made it difficult for her to eat and drink. Ondansetron did not adequately control her symptoms at home. Here in the emergency department she is afebrile, hemodynamically stable and respirating well on room air. She has clear aeration in all lung caal and an abdominal exam that is benign. She was given a dose of IV Reglan which significantly improved her symptoms. Labs here obtained demonstrated a mild hypokalemia and hyponatremia. She was given IV hydration and potassium supplements. She is able to tolerate p.o. intake including p.o. potassium. Overall she was monitored in the emergency department for several hours. Will discharge at this time with prescription for Reglan for use at home. Encourage careful follow-up with primary care and to return to the emergency department as needed. Departure - Departure Disposition: 01 Home, Self Care Clinical Impression: Nausea, Hypokalemia, COVID-19 Instructions: Hypokalemia Dc Prescriptions: Metoclopramide [Reglan] 10 mg PO Q6H PRN #20 tablet PRN Reason: Nausea / Vomiting Comments: Thank you for allowing us to care for you today at [facility]. Prescription sent to [facility] in [place] Today in the emergency department you were evaluated for any possible life- threatening medical emergency. All the testing performed in the emergency department today including your EKG, blood work, urine analysis and chest x-ray were all very reassuring. You were noted to have low blood potassium. You are given a potassium supplements here in the emergency department. I like you to increase your intake and potassium rich foods at home for the next several days such as bananas, tomatoes, avocados. I will be discharging with a prescription for Reglan, To help with any ongoing nausea. Please make a follow-up appoint with your primary care doctor soon as possible. If it anytime you develop any new or worsening symptoms please not hesitate to return.
[2022-03-10 04:11] LABS: BASOPHILS % (AUTO) 0.1 %; EOSINOPHILS % (AUTO) 0.1 %; HGB - HEMOGLOBIN 12.9 g/dL (12.0-16.0); LYMPHOCYTES # (AUTO) 1.3 10^3/uL (1.5-3.5); LYMPHOCYTES % (AUTO) 19.2 %; MEAN CORPUSCULAR HEMOGLOBIN 29.7 pg (27.0-31.0); MEAN CORPUSCULAR HGB CONC 33.9 g/dL (32.0-36.0); MEAN CORPUSCULAR VOLUME 87.6 fL (81.0-99.0); MEAN PLATELET VOLUME 11.2 fL (7.9-10.8); MONOCYTES # (AUTO) 0.5 10^3/uL (0.0-1.0); MONOCYTES % (AUTO) 7.8 %; NEUTROPHILS # (AUTO) 4.8 10^3/uL (1.5-6.6); NEUTROPHILS % (AUTO) 72.5 %; PLT - PLATELET COUNT 208 10^3/uL (130-450); RED BLOOD COUNT 4.34 10^6/uL (4.20-5.40); RED CELL DISTRIBUTION WIDTH 11.7 % (12.0-15.0); WHITE BLOOD COUNT 6.7 x10^3/uL (4.8-10.8)
[2022-03-10 04:12] LABS: VBG BASE EXCESS 2.5 mmol/L (-2 - +2); VBG PH 7.436 (7.31-7.41); VBG TOTAL CO2 28.2 mmol/L (24-29)
[2022-03-10 04:13] LABS: VBG OXYGEN SATURATION 80.2 % (60-80)
[2022-03-10 04:23] LABS: ALBUMIN 3.9 g/dL (3.2-5.5); ALBUMIN/GLOBULIN RATIO 1.3 (1.0-2.2); CALCIUM 8.6 mg/dL (8.5-10.3); CREATININE 0.5 mg/dL (0.4-1.0); MAGNESIUM 1.9 mg/dL (1.7-2.8); POTASSIUM 2.9 mmol/L (3.5-5.0); TOTAL PROTEIN 6.9 g/dL (6.7-8.2)
[2022-03-10] MEDS ORDERED: POTASSIUM CHLOR 10 MEQ/100 ML 10 MEQ/100 ML BAG IV STA (04:25)
[2022-03-10] MEDS ORDERED: MAGNESIUM SULFATE 2 GRAM 2 GM/50 ML BAG IV ONE (04:25)
[2022-03-10 04:38] LABS: PT - PROTHROMBIN TIME 11.4 secs (9.9-12.6)
[2022-03-10 04:56] LABS: BILIRUBIN,URINE NEGATIVE (NEGATIVE); GLUCOSE, URINE (UA) NEGATIVE (NEGATIVE); KETONES,URINE (UA) >=80 mg/dL (NEGATIVE); LEUKOCYTE ESTERASE, URINE TRACE (NEGATIVE); NITRITE,URINE NEGATIVE (NEGATIVE); OCCULT BLOOD,URINE NEGATIVE (NEGATIVE); PH,URINE 6.5 PH (5.0-7.5); PROTEIN,URINE NEGATIVE (NEGATIVE); UROBILINOGEN,URINE 0.2 (NORMAL) E.U./dL (NORMAL)
[2022-03-10 05:00] LABS: CLARITY,URINE CLEAR (CLEAR)
[2022-03-10 05:11] LABS: BACTERIA,URINE Rare /HPF (None Seen); MUCUS,URINE Few Strands; RBC,URINE 0-5 /HPF (0-5); SQUAMOUS EPITHELIAL CELL,UR FEW Squamous (<= Few)
[2022-03-10] MEDS ORDERED: POTASSIUM CHLORIDE 20 MEQ/15 ML UDC ONE (05:28)
[2022-03-10 07:04] VITALS: BP 149/72
[2022-03-10] MEDS ORDERED: POTASSIUM CHLORIDE 20 MEQ/15 ML UDC PO SCH (08:00)
--- NOTE | 2022-03-10 08:46 | XRAY Report ---
PROCEDURE: Chest 1 View X-Ray INDICATIONS: chest pain TECHNIQUE: One view of the chest was acquired. COMPARISON: Chest radiograph 08/01/2020 FINDINGS: Surgical changes and devices: None. Lungs and pleura: No pleural effusions or pneumothorax. Lungs are clear. Mediastinum: Mediastinal contours appear normal. Heart size is normal. Bones and chest wall: No suspicious bony lesions. Overlying soft tissues appear unremarkable. IMPRESSION: No acute cardiopulmonary abnormality. There is no significant discrepancy when compared with the preliminary overnight report. Reviewed by: Roni Ruiz MD on 03/10/2022 8:43 AM PDT Approved by: Roni Ruiz MD on 03/10/2022 8:43 AM PDT Station ID: [id number]
== END 2022-03-10 07:20 | disposition home or self-care (01) ==
LOC: EDUNIT# → ED 03:09
DX: U07.1 COVID-19 (principal); E87.6 Hypokalemia; I10 Essential (primary) hypertension
CPT/HCPCS: 36415; 71045; 80053; 81001; 82803; 83690; 83735; 85025; 85610; 87086; 93005; 96361; 96365; 96366; 96368; 96375; 99284; A9270; J2765; 81003

== ENCOUNTER → 2022-03-10 | Outpatient (CLI) | payer MEDICARE | END | disposition critical access hospital (66) | LOC: EMS 02:35 | DX: R55 Syncope and collapse (principal); R11.0 Nausea; R32 Unspecified urinary incontinence; U07.1 COVID-19 | CPT/HCPCS: A0425; A0427 ==

== ENCOUNTER 2022-06-29 12:44 | Outpatient (CLI) | payer MEDICARE ==
--- NOTE | 2022-06-29 19:37 | DEXA Report ---
PROCEDURE: Dexa Spine and/or Hip INDICATIONS: OSTEOPENIA TECHNIQUE: Dual energy x-ray absorptiometry (DXA) was performed on a [employer] System. Regions measur ed are the AP Spine, femoral neck, and if needed forearm. COMPARISON: None. FINDINGS: Lumbar Spine: Bone Mineral Density 1.151 g/cm/cm, T score -0.2, normal. There is osteopenia at L3. There is no sig nificant interval change. Left Femoral Neck: Bone Mineral Density 0.665 g/cm/cm, T score -2.7, osteoporosis Left Hip: Bone Mineral Density 0.789 g/cm/cm, T score -1.7, osteopenia. No significant interval change. (T score greater or equal to -1.0: NORMAL) (T score from -1.1 to -2.4: OSTEOPENIA) (T score less than or equal to -2.5 to: OSTEOPOROSIS) Impression: Left femoral neck osteoporosis. No significant interval change. Patients with diagnosis of osteoporosis or osteopenia should have regular bone mineral density assess ment. For those eligible for Medicare, routine testing is allowed once every 2 years. Testing frequ ency can be increased for patients who have rapidly progressing disease or for those who are receivin g medical therapy to restore bone mass. Reviewed by: Marvin Song MD on 06/29/2022 7:36 PM PST Approved by: Marvin Song MD on 06/29/2022 7:36 PM PST Station ID: [id number]
== END 2022-06-29 12:45 | disposition home or self-care (01) ==
LOC: DI 12:44
PROVIDERS: ATTEND Nurse Practitioner Family
DX: M81.0 Age-related osteoporosis without current pathological fracture (principal)

== ENCOUNTER 2022-08-22 08:27 | Outpatient (CLI) | payer MEDICARE ==
[2022-08-22 16:02] LABS: CHOL/HDL RATIO 1.8 (<4.4); CHOLESTEROL 164 mg/dL; HDL CHOLESTEROL 93 mg/dL; LDL CHOLESTEROL,CALCULATED 59 mg/dL; LDL/HDL RATIO 0.6 (<4.4); TRIGLYCERIDES 59 mg/dL; VLDL CHOLESTEROL 12 mg/dL
== END 2022-08-22 08:28 | disposition home or self-care (01) ==
LOC: LAB.S 08:27
PROVIDERS: ATTEND Nurse Practitioner Family
DX: E78.5 Hyperlipidemia, unspecified (principal)
CPT/HCPCS: 36415; 80061; 83721